=== PATIENT | male | born 1980 | race Caucasian/White ===

== ENCOUNTER 2021-02-18 19:03 | Emergency (ER) | payer MEDICARE, MEDICAID ==
[~2021-02-18] VITALS: Ht 177.8 cm; Wt 109.0 kg
[2021-02-18 19:46] VITALS: BP 147/101
== END 2021-02-19 03:04 | disposition left against medical advice (07) ==
LOC: ER 19:03
DX: R55 Syncope and collapse (principal); Z53.21 Procedure and treatment not carried out due to patient leaving prior to being seen by health care provider

== ENCOUNTER 2021-02-23 13:04 | Emergency (ER) | payer MEDICARE, MEDICAID ==
[~2021-02-23] VITALS: Ht 180.3 cm; Wt 111.0 kg
[2021-02-23 13:24] VITALS: BP 137/87
[2021-02-23] MEDS ORDERED: ketorolac trometh. 30mg/ml inj. IV ONE (15:30)
--- NOTE | 2021-02-23 15:45 | NUR ---
toradol given via IM per [facility].
[2021-02-23] MEDS ORDERED: KETO10TA2 PO (16:15)
== END 2021-02-23 16:02 | disposition home or self-care (01) ==
LOC: ER 13:05
DX: S20.219D Contusion of unspecified front wall of thorax, subsequent encounter (principal); X58.XXXD Exposure to other specified factors, subsequent encounter; R10.9 Unspecified abdominal pain
CPT/HCPCS: 74018; 96374; 99283; J1885